=== PATIENT | female | born 1950 | race Caucasian/White ===

== ENCOUNTER 2016-07-24 23:05 | Emergency (ER) | payer MEDICAID, OTHER ==
[~2016-07-24] VITALS: Ht 154.9 cm; Wt 81.6 kg
[2016-07-25 01:57] LABS: Hematocrit 39.7 % (36.0-46.0); Hemoglobin 12.9 g/dL (12.2-16.2); Mean Corpuscular Hemoglobin 29.1 pg (28.0-32.0); Mean Corpuscular Hgb Conc. 32.6 g/dL (32.0-36.0); Mean Corpuscular Volume 89.4 fL (80.0-100.0); Mean Platelet Volume 9.4 fL (7.4-10.4); Platelet Count (auto) 273 10^3/uL (140-450); Red Cell Distribution Width 14.3 % (11.6-16.0); SUSPECT VIEW TRANSMISSION
[2016-07-25 02:04] LABS: White Blood Cell 30.5 10^3/uL (4.4-10.8)
[2016-07-25 02:05] LABS: Metamyelocytes % 0; Promyelocytes % 0; Reactive Lymphocytes 0
[2016-07-25 02:12] LABS: Albumin 2.9 g/dL (3.4-5.0); BUN/Creatinine Ratio 14.3; Calcium 8.3 mg/dL (8.5-10.1); Potassium 5.5 mmol/L (3.5-5.1)
[2016-07-25 02:18] LABS: Bilirubin, Total 0.7 mg/dL (0.2-1.0); Total Protein 8.1 g/dL (6.4-8.2)
[2016-07-25 02:22] LABS: Large Platelets FEW; Myelocytes % 1; Platelet Estimate Adequa; RBC Morphology Normal
[2016-07-25] MEDS ORDERED: LEVOFLOXACIN 750MG 150 ML IV ONE (03:30)
[2016-07-25] MEDS ORDERED: MORPHINE SULF INJ 2 MG/ML SYRINGE 1ML IV ONE (04:00)
[2016-07-25] MEDS ORDERED: ONDANSETRON HCL 4 MG/2 ML VIAL IV ONE (04:00)
[2016-07-25] MEDS ORDERED: VANCOMYCIN 1GM/250ML D5W 250 ML IV ONE (05:15)
[2016-07-25] MEDS ORDERED: SODIUM CHLORIDE 0.9% 500 ML IV ONE (06:00)
[2016-07-25 07:06] LABS: Urine Bilirubin Negative (Negative); Urine Glucose Normal (Normal); Urine Ketone Negative (Negative); Urine Nitrite Negative (Negative); Urine RBC 721 /hpf (0 - 4); Urine Squamous Epithelial Cell MOD /hpf (<5); Urine Urobilinogen Normal (Negative)
[2016-07-25 07:07] LABS: Urine Blood 3+ /uL (Negative)
[2016-07-25 07:08] LABS: Urine Color Brown (Yellow)
[2016-07-25 08:00] LABS: BUN/Creatinine Ratio 16.2; Potassium 5.5 mmol/L (3.5-5.1)
[2016-07-25] MEDS ORDERED: NALBUPHINE HCL 10 MG/1ml INJECTION ONE (08:41)
[2016-07-25] MEDS ORDERED: NALBUPHINE HCL 10 MG/1ml INJECTION IV ONE (08:45)
[2016-07-25 10:30] VITALS: BP 148/69
== END 2016-07-25 10:55 | disposition short-term general hospital (02) ==
LOC: ER 23:05
DX: J02.9 Acute pharyngitis, unspecified (principal); R59.1 Generalized enlarged lymph nodes; E87.5 Hyperkalemia; I12.9 Hypertensive chronic kidney disease with stage 1 through stage 4 chronic kidney disease, or unspecified chronic kidney disease; N18.9 Chronic kidney disease, unspecified; J44.9 Chronic obstructive pulmonary disease, unspecified
CPT/HCPCS: 36415; 70490; 71010; 80048; 80053; 81001; 82962; 83605; 83880; 84484; 85007; 85027; 85379; 87040; 87077; 87186; 87880; 93005; 94761; 96365; 96366; 96367; 96375; 99285; J1956; J2270; J2300; J2405; J3370

== ENCOUNTER 2018-09-11 17:22 | Emergency (ER) | payer OTHER, MEDICAID ==
[~2018-09-11] VITALS: Ht 154.9 cm; Wt 79.4 kg
[2018-09-11 18:27] LABS: Basophils # (auto) 0.1 uL; Basophils % (auto) 1.4 % (0.0-2.0); Eosinophils # (auto) 0.4 uL; Eosinophils % (auto) 4.9 % (0.0-7.0); Hematocrit 37.3 % (36.0-46.0); Lymphocytes # (auto) 2.5 uL; Lymphocytes % (auto) 34.3 % (10.0-50.0); Mean Corpuscular Hemoglobin 28.4 pg (28.0-32.0); Mean Corpuscular Hgb Conc. 32.2 g/dL (32.0-36.0); Monocytes # (auto) 0.5 uL; Monocytes % (auto) 6.9 % (0.0-12.0); Neutrophils # (auto) 3.8 uL; Neutrophils % (auto) 52.5 % (37.0-80.0); Nucleated Red Blood Cells % 0.1 %; Platelet Count (auto) 188 10^3/uL (140-450); Red Blood Cells 4.24 10^6/uL (4.0-5.20); Red Cell Distribution Width 14.1 % (11.8-14.3); White Blood Cell 7.2 10^3/uL (4.4-10.8)
[2018-09-11 18:43] LABS: Albumin 3.5 g/dL (3.4-5.0); Anion Gap 10 (5-15); Blood Urea Nitrogen 25 mg/dL (7-18); Calcium 8.6 mg/dL (8.5-10.1); Carbon Dioxide 21 mmol/L (21-32); Chloride 109 mmol/L (98-107); Glucose 98 mg/dL (74-106); Potassium 4.4 mmol/L (3.5-5.1); Sodium 140 mmol/L (136-145)
[2018-09-11 18:45] LABS: Alanine Aminotransferase 37 U/L (13-56); Aspartate Aminotransferase 47 U/L (15-37); BUN/Creatinine Ratio 16.1; GFR African American 43 mL/min; GFR Non-African American 35 mL/min
[2018-09-11 18:48] LABS: Alkaline Phosphatase 67 U/L (45-117); Bilirubin, Total 0.5 mg/dL (0.2-1.0); Total Protein 7.6 g/dL (6.4-8.2)
[2018-09-11] MEDS ORDERED: ENOXAPARIN SOD 80 MG/0.8ML SYRINGE SC ONE (23:45)
[2018-09-12] MEDS ORDERED: MORPHINE SULF INJ 2 MG/ML SYRINGE 1ML IV ONE (00:30)
[2018-09-12] MEDS ORDERED: ONDANSETRON HCL 4 MG/2 ML VIAL IV ONE (00:30)
[2018-09-12 01:09] VITALS: BP 137/57
== END 2018-09-12 01:29 | disposition short-term general hospital (02) ==
LOC: EDBD 17:22 → ER 17:26
DX: R06.02 Shortness of breath (principal); R07.9 Chest pain, unspecified; R79.89 Other specified abnormal findings of blood chemistry; I12.9 Hypertensive chronic kidney disease with stage 1 through stage 4 chronic kidney disease, or unspecified chronic kidney disease; N18.9 Chronic kidney disease, unspecified
CPT/HCPCS: 36415; 71045; 80053; 83880; 84484; 85025; 93005; 96372; 96374; 96375; 99285; J1650; J2270; J2405; J7030